=== PATIENT | female | born 1985 | race Caucasian/White ===

== ENCOUNTER 2016-07-03 13:34 | Emergency (ER) | payer OTHER, SELFPAY ==
[2016-07-03 13:46] VITALS: BP 137/83; O2SAT 100
[2016-07-03 13:47] VITALS: PULSE 97
--- NOTE | 2016-07-03 14:06 | ERPHSYRPT ---
- History of Present Illness Time Seen by Provider: 07/03/16 13:58 Source: patient Exam Limitations: no limitations Patient Subjective Stated Complaint: right ear pain Triage Nursing Assessment: right ear pain. no drainage noted Physician History: This is a 31-year-old white female arrives with complaint of right ear pain since this morning. She states that she's been exposed upper respiratory infections and strep by her family. She has no fever she does state she has had some mild dizziness last couple of days some nasal drainage. Past medical history includes bronchitis, gallbladder disease. Past surgical history includes cholecystectomy tubal ligation. Social history patient denies alcohol or illicit drug use positive history of tobacco use Timing/Duration: abrupt onset, this morning Severity: moderate ENT Location: ear (R) Prearrival Treatment: over the counter meds Modifying Factors: Improves With: nothing Associated Symptoms: ear pain (R), dizziness, No ear pain (L), No cough, No fever, No chills, No change in hearing, No drooling, No ear drainage, No facial pain/swelling, No headache, No hearing loss, No jaw pain, No malaise, No motion sickness, No nasal congestion/drainage, No epistaxis, No nasal foreign body, No neck pain, No poor fluid intake, No poor solids intake, No ringing of ears, No swollen glands, No sinus infection, No sore throat, No tooth pain, No difficulty swallowing, No voice change Allergies/Adverse Reactions: No Known Drug Allergies Allergy (Verified 07/03/16 13:46) Hx Tetanus, Diphtheria Vaccination/Date Given: No Hx Influenza Vaccination/Date Given: No Hx Pneumococcal Vaccination/Date Given: No - Review of Systems Constitutional: No Fever, No Chills Eyes: No Symptoms Ears, Nose, & Throat: Ear Pain, Nose Discharge, No Ear Discharge, No Hearing Changes, No Tinnitus, No Nose Pain, No Nose Congestion, No Sinus Drainage, No Epistaxis, No Mouth Pain, No Loose Teeth, No Throat Pain, No Throat Swelling, No Hoarse, No Painful Swallowing, No Snoring, No Stridor Respiratory: No Cough, No Dyspnea Cardiac: No Chest Pain, No Edema, No Syncope Abdominal/Gastrointestinal: No Abdominal Pain, No Nausea, No Vomiting, No Diarrhea Genitourinary Symptoms: No Dysuria Musculoskeletal: No Back Pain, No Neck Pain Skin: No Rash Neurological: No Dizziness, No Focal Weakness, No Sensory Changes Psychological: No Symptoms Endocrine: No Symptoms All Other Systems: Reviewed and Negative - Past Medical History Pertinent Past Medical History: Yes Respiratory History: Bronchitis GI Medical History: Gallbladder Disease - Past Surgical History Past Surgical History: Yes Gastrointestinal: Cholecystectomy Female Surgical History: Tubal Ligation - Social History Smoking Status: Current every day smoker How long have you smoked: 20 Exposure to second hand smoke: No Drug Use: none Patient Lives Alone: No - Female History Hx Last Menstrual Period: three weeks ago - Nursing Vital Signs Nursing Vital Signs: Initial Vital Signs Temperature 97.4 F Temperature Source Oral Pulse Rate 97 Respiratory Rate 20 Blood Pressure [Right Arm] 137/83 Pain Intensity 4 - Physical Exam General Appearance: mild distress Eye Exam: bilateral eye: normal inspection, PERRL, EOMI Ear Exam: right ear: TM dull, TM red, left ear: TM normal, bilateral ear: auricle normal, canal normal Nasal Exam: normal inspection Throat Exam: pharynx normal, moist mucus membranes, No tonsillar exudate Neck Exam: supple Cardiovascular/Respiratory Exam: normal breath sounds, regular rate/rhythm Abdominal Exam: non-tender, soft Neurologic Exam: alert, oriented x 3, sensation nml, No motor deficits Skin Exam: normal color, warm, dry SpO2 Interpretation: normal (100%) SpO2: 100 Oxygen Delivery: Room Air - Course Nursing assessment & vital signs reviewed: Yes - Progress Progress: improved Progress Note: 07/03/16 14:03 This is a 31-year-old white female she states that she's had some mild dizziness over the past couple days some nasal discharge this morning she woke up with right ear pain. On physical examination right tympanic membrane is dull and erythematous physical examination is otherwise unremarkable patient is in mild distress. Patient states she is driving she has taken Motrin at home for pain. Will go ahead and write for amoxicillin and [place] for pain - Departure Time of Disposition: 14:04 Departure Disposition: Home Clinical Impression: Right ear pain Right otitis media Qualifiers: Otitis media type: suppurative Chronicity: acute Condition: Fair Critical Care Time: No Instructions: Otitis Media (Middle Ear Infection) Additional Instructions: Return home. Plenty of fluids. [place] 5/325 one orally every 4-6 hours as needed for pain. #12 tablets Amoxicillin 500 mg orally 3 times a day for 10 days. Follow-up with your family symptoms are worse, no better in 48 hours, or persist longer than one week. Return for acute distress or for severe symptoms. Prescriptions: Amoxicillin 500 mg PO TID #30 capsule Hydrocodone Bit/Acetaminophen [[place] 5/325Mg] 1 tablet PO Q4-6HPRN PRN #12 tablet PRN Reason: Pain
== END 2016-07-03 14:19 | disposition home or self-care (01) ==
LOC: ED 13:34
DX: H66.91 Otitis media, unspecified, right ear (principal)
CPT/HCPCS: 99281; 99282

== ENCOUNTER 2017-07-05 19:57 | Emergency (ER) | payer OTHER, SELFPAY ==
[2017-07-05 20:08] VITALS: BP 127/89; PULSE 60; O2SAT 100
--- NOTE | 2017-07-05 20:11 | ERPHSYRPT ---
- History of Present Illness Time Seen by Provider: 07/05/17 20:07 Source: patient Exam Limitations: no limitations Patient Subjective Stated Complaint: Right Foot Pain Triage Nursing Assessment: Pt presents to the ED with complaints of right foot injury that occurred on tuesday. Pt states a bar stool fell on her foot causing the pain. Pt denies other complaints at this time. Bruising and swelling noted to base of 4th and 5th digits on right foot. No distress noted, skin PWD. A&O x4. Physician History: Pt dropped a bar stool on her right foot 3 days ago, denies other injury, she has been walking without difficulty. Method of Injury: direct blow Occurred: days ago (3) Quality: intermittent Severity of Pain-Max: mild Severity of Pain-Current: mild Lower Extremities Pain: foot: right Modifying Factors: Improves With: immobilization, movement Associated Symptoms: none Allergies/Adverse Reactions: No Known Drug Allergies Allergy (Verified 07/03/16 13:46) Hx Tetanus, Diphtheria Vaccination/Date Given: No Hx Influenza Vaccination/Date Given: No Hx Pneumococcal Vaccination/Date Given: No Immunizations Up to Date: Yes - Review of Systems Constitutional: No Symptoms Musculoskeletal: Other (right foot pain) All Other Systems: Reviewed and Negative - Past Medical History Pertinent Past Medical History: Yes Respiratory History: Bronchitis GI Medical History: Gallbladder Disease - Past Surgical History Past Surgical History: Yes Gastrointestinal: Cholecystectomy Female Surgical History: Tubal Ligation - Social History Smoking Status: Current every day smoker How long have you smoked: 15 years Exposure to second hand smoke: Yes Drug Use: none Patient Lives Alone: No - Female History Hx Last Menstrual Period: 06/14/2017 Hx Now: No - Nursing Vital Signs Nursing Vital Signs: Initial Vital Signs Temperature 98.7 F 07/05/17 20:02 Pulse Rate 60 07/05/17 20:02 Respiratory Rate 18 07/05/17 20:02 Blood Pressure 127/89 07/05/17 20:02 O2 Sat by Pulse Oximetry 100 07/05/17 20:02 Pain Scale Pain Intensity 4 - Physical Exam General Appearance: no apparent distress Neck Exam: normal inspection Cardiovascular/Respiratory Exam: chest non-tender Gastrointestinal/Abdominal Exam: non-tender Back Exam: normal inspection Foot Exam: right foot: ecchymosis (small, ecchymotic area at the base of the 4th toe, dorsally.), soft tissue tenderness Neuro/Tendon Exam: normal sensation, normal motor functions Mental Status Exam: alert, oriented x 3 Skin Exam: normal color, warm, dry SpO2 Interpretation: normal SpO2: 100 Oxygen Delivery: Room Air - Course Nursing assessment & vital signs reviewed: Yes - Radiology Exams Foot X-ray Interpretation: Interpreted by me, Negative Ordered Tests: Active Orders 24 hr Category Date Time Status FOOT (MINIMUM 3 VIEWS) Stat Exams 07/05/17 20:20 Taken - Progress Progress: unchanged Progress Note: 07/05/17 20:48 No severe pain or distress. - Departure Time of Disposition: 20:49 Departure Disposition: Home Clinical Impression: Foot contusion Qualifiers: Encounter type: initial encounter Laterality: right Qualified Code(s): S90.31XA - Contusion of right foot, initial encounter Condition: Stable Critical Care Time: No Referrals: DOCTOR,NO FAMILY [Primary Care Provider] - Instructions: Foot Sprain (DC) Additional Instructions: Resdt with elevated foot, apply ice to swelling!
--- NOTE | 2017-07-06 08:38 | XRAY ---
Indication: Pain following injury 4 days ago. Comparison: None 3 nonweightbearing views of the right foot obtained. No bony, articular, or soft tissue abnormalities.
== END 2017-07-05 21:00 | disposition home or self-care (01) ==
LOC: ED 19:57
DX: S90.31XA Contusion of right foot, initial encounter (principal); W22.8XXA Striking against or struck by other objects, initial encounter
CPT/HCPCS: 73630; 99282